=== PATIENT | male | born 1960 | race Caucasian/White ===

== ENCOUNTER 2024-01-12 08:40 | Day surgery (SDC) | payer OTHER ==
[~2024-01-12] VITALS: Ht 188 cm; Wt 108.9 kg
[2024-01-12] MEDS ORDERED: LIDOCAINE 2% 100 MG/5 ML UJET TP ONE ×2 (09:53→12:00)
[2024-01-12] MEDS ORDERED: fentaNYL citrate 0.05 MG/ML VIAL ONE (09:53)
[2024-01-12] MEDS ORDERED: MIDAZOLAM 2 MG/2 ML VIAL ONE (09:53)
[2024-01-12] MEDS: MIDAZOLAM 2 MG/2 ML VIAL IVP ONE (10:32)
[2024-01-12] MEDS: fentaNYL citrate 0.05 MG/ML VIAL IVP ONE (10:40)
== END 2024-01-12 12:48 | disposition home or self-care (01) ==
LOC: MOR 08:40 → MMU 08:40 → MOR 12:48
PROVIDERS: ATTEND Internal Medicine Gastroenterology
DX: Z12.11 Encounter for screening for malignant neoplasm of colon (principal); R13.10 Dysphagia, unspecified; K57.30 Diverticulosis of large intestine without perforation or abscess without bleeding; K22.2 Esophageal obstruction; K44.9 Diaphragmatic hernia without obstruction or gangrene; K63.5 Polyp of colon; I10 Essential (primary) hypertension; E78.00 Pure hypercholesterolemia, unspecified; E11.9 Type 2 diabetes mellitus without complications; Z88.5 Allergy status to narcotic agent; Z88.0 Allergy status to penicillin; Z88.1 Allergy status to other antibiotic agents; Z91.041 Radiographic dye allergy status; Z79.899 Other long term (current) drug therapy; Z98.890 Other specified postprocedural states
CPT/HCPCS: 36415; 82948; 86677; J2250; J3010; J7030